=== PATIENT | male | born 1945 | race Caucasian/White ===

== ENCOUNTER 2016-08-07 14:42 | Emergency (ER) | payer OTHER ==
[2016-08-07 14:59] VITALS: BMI 22.6
--- NOTE | 2016-08-07 15:22 | ED PDOC ---
Arrival/HPI - General Historian: Patient - History of Present Illness Time/Duration: < week Quality: Aching Severity Level: 3 <Juan Jose Plummer - Last Filed: 08/07/16 15:18> <Florentino Tenorio DO - Last Filed: 08/07/16 15:43> - General Chief Complaint: Back Pain Time Seen by Provider: 08/07/16 15:03 - History of Present Illness Narrative History of Present Illness (Text): 08/07/16 15:18 This is a 71 year old [place] male presenting to the ED with back pain. The patient states that he was carrying grocery bags five days ago as the onset of his pain. The patient reprots the pain an left paraspinal. Patient denies numbness, tingling, muscle weakness, bowel/bladder incontinence, pain with urination, hematuria, and gait dysfunction. (Juan Jose Plummer) Past Medical History - Provider Review Nursing Documentation Reviewed: Yes - Travel History Have you recently traveled outside [place] w/in the past 3 mons?: No - Past History Past History: Non-Contributing - Infectious Disease Hx of Infectious Diseases: None - Tetanus Immunization Tetanus Immunization: Unknown - Past Medical History Past Medical History: Non-Contributing - Psychiatric Hx Substance Use: No - Anesthesia Hx Anesthesia: No Hx Anesthesia Reactions: No Hx Malignant Hyperthermia: No <Juan Jose Plummer - Last Filed: 08/07/16 15:18> Family/Social History - Physician Review Nursing Documentation Reviewed: Yes Family/Social History: No Known Family HX Smoking Status: Never Smoked Hx Alcohol Use: No Hx Substance Use: No <Juan Jose Plummer - Last Filed: 08/07/16 15:18> Allergies/Home Meds <Juan Jose Plummer - Last Filed: 08/07/16 15:18> <Florentino Tenorio DO - Last Filed: 08/07/16 15:43> Allergies/Adverse Reactions: Allergies NKDA Allergy (Uncoded 08/07/16 14:52) none Home Medications: Home Meds Medication Instructions Recorded Confirmed Nitroglycerin [Nitrostat] 0.4 mg SL PRN PRN 08/07/16 08/07/16 Review of Systems - Physician Review All systems were reviewed & negative as marked: Yes - Review of Systems Genitourinary Male: absent: Dysuria, Frequency, Hematuria, Urinary Output Changes Musculoskeletal: Back Pain. absent: Joint Swelling, Myalgias Neurological: absent: Headache, Focal Weakness, Gait Changes, Disequilibrium <Juan Jose Plummer - Last Filed: 08/07/16 15:18> Physical Exam Temperature: Afebrile Blood Pressure: Normal Pulse: Regular Respiratory Rate: Normal Appearance: Positive for: Well-Appearing, Non-Toxic, Comfortable Pain Distress: None Mental Status: Positive for: Alert and Oriented X 3 - Systems Exam Head: Present: Atraumatic, Normocephalic Pupils: Present: PERRL. No: Pinpoint Extroacular Muscles: Present: EOMI. No: Gaze Palsy Conjunctiva: Present: Normal. No: Icteric Mouth: Present: Moist Mucous Membranes. No: Dry Respiratory/Chest: No: Respiratory Distress, Accessory Muscle Use Cardiovascular: Present: Regular Rate and Rhythm, Normal S1, S2 Abdomen: No: Distention, Guarding Back: Present: Normal Inspection, Paraspinal Tenderness, Other (Negative Spurling Maneuver, full ROM T/L Spine). No: CVA Tenderness, Midline Tenderness , Pain with Leg Raise Upper Extremity: Present: Normal Inspection, Normal ROM, Neurovascularly Intact. No: Cyanosis, Edema Lower Extremity: Present: Normal Inspection, NORMAL PULSES, Normal ROM, Neurovascularly Intact, Capillary Refill < 2 s. No: Edema, CALF TENDERNESS, Derick's Sign, Tenderness, Deformity Neurological: Present: GCS=15, Motor Func Grossly Intact, Normal Sensory Function, Norm Deep Tendon Reflexes, Gait Normal Skin: Present: Warm, Dry, Normal Color. No: Rashes Psychiatric: Present: Alert, Oriented x 3 <Juan Jose Plummer - Last Filed: 08/07/16 15:18> Vital Signs Temp Pulse Resp BP Pulse Ox 08/07/16 14:55 98.6 F 80 18 138/84 99 Medical Decision Making <Juan Jose Plummer - Last Filed: 08/07/16 15:18> <Florentino Tenorio DO - Last Filed: 08/07/16 15:43> ED Course and Treatment: 08/07/16 15:26 Impression: This is a 71 year old male presenting with Back Pain. The patient is in no clinical distress. Able to ambulate, forward flex, extend, and sidebend without issue. The patient reports that he is here for a medication to take his pain away. Patient is amenable to take motrin. Differential: Lumbosacral Strain Paraspinal Muscle Strain Plan: Motrin 600mg PO Prior Visits: None Progress Note: Patient seen and examined. Patient without neuro deficit. Patient able to ambulate and move without issue. Full ROM throughout the thoracic and lumbar spine. No radicular symptoms. DTRs symmetric B/L. No midline spine tenderness. patient given 1 tab motrin 600mg PO in the ED and DC home. (Juan Jose Plummer) 08/07/16 15:42 71 year old male complaining of back pain. In agreement with resident note, which includes further HPI details. Patient was seen and evaluated with resident , came up with plan and treatment together. On physical exam patient with paraspinal tenderness. (Florentino Tenorio DO) - Medication Orders Current Medication Orders: Discontinued Medications Ibuprofen (Motrin Tab) 600 mg PO STAT STA Stop: 08/07/16 15:17 Last Admin: 08/07/16 15:28 Dose: 600 MG MAR Pain/Vitals Document 08/07/16 15:28 [email or web address] (Rec: 08/07/16 15:31 [email or web address] [facility] [id number] Pain Reassessment Is This A Pain ReAssessment? No Sleep Is patient sleeping during reassessment? 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 KASSANDRA has examined the patient and agrees with the treatment plan. - Scribe Statement The provider has reviewed the documentation as recorded by the Scribe <Florentino Tenorio DO - Last Filed: 08/07/16 15:43> - Scribe Statement Jaison Mejia All medical record entries made by the Scribe were at my direction and personally dictated by me. I have reviewed the chart and agree that the record accurately reflects my personal performance of the history, physical exam, medical decision making, and the department course for this patient. I have also personally directed, reviewed, and agree with the discharge instructions and disposition. (Florentino Tenorio DO) Disposition/Present on Arrival - Present on Arrival Any Indicators Present on Arrival: No History of DVT/PE: No History of Uncontrolled Diabetes: No Urinary Catheter: No History of Decub. Ulcer: No History Surgical Site Infection Following: None - Disposition Have Diagnosis and Disposition been Completed?: Yes Disposition Time: 15:30 Patient Plan: Discharge <Juan Jose Plummer - Last Filed: 08/07/16 15:18> <Florentino Tenorio DO - Last Filed: 08/07/16 15:43> - Disposition Diagnosis: Back pain Discharge Instructions (ExitCare): Back Pain (ED), Back Exercises (ED) Print Language: GABONESE Additional Instructions: 1.) Take motrin 600mg po every 8 hours as needed for pain 2.) Use proper lifting technique when lifting heavy objects 3.) Stretching exercises for back 4.) Follow up with PMD following discharge 5.) If symptoms return, please return to the ED for evaluation. Prescriptions: Ibuprofen [Motrin] 600 mg PO Q8 PRN #30 tab PRN Reason: Pain
[2016-08-07 15:47] VITALS: BP 149/79; PULSE 62; RESP 16; TEMP 97.5; O2SAT 100
== END 2016-08-07 16:00 | disposition home or self-care (01) ==
LOC: ED 14:42
DX: M54.9 Dorsalgia, unspecified (principal)

== ENCOUNTER 2016-08-09 10:42 | Emergency (ER) | payer OTHER ==
[2016-08-09 10:43] VITALS: BMI 22.6
[2016-08-09 12:06] VITALS: RESP 18; TEMP 98.2
--- NOTE | 2016-08-09 12:27 | ED PDOC ---
Arrival/HPI - General Chief Complaint: Back Pain Time Seen by Provider: 08/09/16 11:44 Historian: Patient - History of Present Illness Narrative History of Present Illness (Text): 08/09/16 11:54 A 71 year old male who presents to the emergency department complaining of left sided lower back pain for the past 3 days. Patient states he was here 3 days ago , received medications and was discharged home. Patient notes he bent down to tie his shoes and pain developed again. He denies any bowel/urinary changes, saddle anesthesia, or any other complaints at this time. PMD: None Time/Duration: Other Symptom Onset: Other Symptom Course: Unchanged Quality: Other Activities at Onset: Rest Context: Home Past Medical History - Provider Review Nursing Documentation Reviewed: Yes - Past History Past History: Non-Contributing - Infectious Disease Hx of Infectious Diseases: None - Tetanus Immunization Tetanus Immunization: Unknown - Past Medical History Past Medical History: Non-Contributing - Psychiatric Hx Substance Use: No - Anesthesia Hx Anesthesia: No Hx Anesthesia Reactions: No Hx Malignant Hyperthermia: No Family/Social History - Physician Review Nursing Documentation Reviewed: Yes Family/Social History: No Known Family HX Smoking Status: Never Smoked Hx Alcohol Use: No Hx Substance Use: No Allergies/Home Meds Allergies/Adverse Reactions: Allergies NKDA Allergy (Uncoded 08/07/16 14:52) none Home Medications: Home Meds Medication Instructions Recorded Confirmed Nitroglycerin [Nitrostat] 0.4 mg SL PRN PRN 08/07/16 08/09/16 Review of Systems - Physician Review All systems were reviewed & negative as marked: Yes - Review of Systems Gastrointestinal: absent: Stool Changes Genitourinary Male: absent: Dysuria, Frequency, Hematuria, Urinary Output Changes Musculoskeletal: Back Pain. absent: Neck Pain Neurological: Other (saddle anesthesia) Physical Exam Vital Signs Reviewed: Yes Vital Signs Temp Pulse Resp BP Pulse Ox 08/09/16 14:00 57 L 18 164/79 H 100 08/09/16 11:42 98.2 F 77 18 172/90 H 98 Temperature: Afebrile Blood Pressure: Hypertensive Pulse: Regular Respiratory Rate: Normal Appearance: Positive for: Well-Appearing, Non-Toxic, Comfortable Pain Distress: None Mental Status: Positive for: Alert and Oriented X 3 - Systems Exam Head: Present: Atraumatic, Normocephalic Pupils: Present: PERRL Extroacular Muscles: Present: EOMI Conjunctiva: Present: Normal Mouth: Present: Moist Mucous Membranes Neck: Present: Normal Range of Motion Respiratory/Chest: Present: Clear to Auscultation, Good Air Exchange. No: Respiratory Distress, Accessory Muscle Use Cardiovascular: Present: Regular Rate and Rhythm, Normal S1, S2. No: Murmurs Abdomen: Present: Normal Bowel Sounds. No: Tenderness, Distention, Peritoneal Signs Back: Present: Paraspinal Tenderness (left paralumbar tenderness with palpation) Upper Extremity: Present: Normal Inspection. No: Cyanosis, Edema Lower Extremity: Present: Normal Inspection. No: Edema Neurological: Present: GCS=15, CN II-XII Intact, Speech Normal Skin: Present: Warm, Dry, Normal Color. No: Rashes Psychiatric: Present: Alert, Oriented x 3, Normal Insight, Normal Concentration Medical Decision Making ED Course and Treatment: 08/09/16 11:54 Impression: A 71 year old male with left lower back pain. Differential Diagnosis include but are not limited to: musculoskeletal vs. fracture Plan: -- LS Spine X-ray -- Flexeril and Motrin -- Reassess and disposition Prior Visits: Notes and results from previous visits were reviewed. The patient last presented to the emergency department on 08/07/16 for evaluation of back pain after lifting grocery bags. Progress Notes: 08/09/16 14:10 Patient feeling better at this time. Patient to be discharged with Rx and follow up instructions. - RAD Interpretation Radiology Orders: 08/09/16 11:54 LS SPINE WITH OBL > 18 YRS OLD [RAD] Stat - Medication Orders Current Medication Orders: Discontinued Medications Cyclobenzaprine HCl (Flexeril) 10 mg PO STAT STA Stop: 08/09/16 11:55 Last Admin: 08/09/16 12:10 Dose: 10 MG Ibuprofen (Motrin Tab) 600 mg PO STAT STA Stop: 08/09/16 11:55 Last Admin: 08/09/16 12:10 Dose: 600 MG MAR Pain/Vitals Document 08/09/16 12:10 [email or web address] (Rec: 08/09/16 12:10 [id number]) Pain Reassessment Is This A Pain ReAssessment? No Sleep Is patient sleeping during reassessment? No Presence of Pain Presence of Pain Yes - Scribe Statement The provider has reviewed the documentation as recorded by the Scribe Dimpal Fitzpatrick Provider Mahi Attestation: All medical record entries made by the Mahi were at my direction and personally dictated by me. I have reviewed the chart and agree that the record accurately reflects my personal performance of the history, physical exam, medical decision making, and the department course for this patient. I have also personally directed, reviewed, and agree with the discharge instructions and disposition. Disposition/Present on Arrival - Present on Arrival Any Indicators Present on Arrival: No History of DVT/PE: No History of Uncontrolled Diabetes: No Urinary Catheter: No History of Decub. Ulcer: No History Surgical Site Infection Following: None - Disposition Have Diagnosis and Disposition been Completed?: Yes Diagnosis: Lumbar strain Disposition: HOME/ ROUTINE Disposition Time: 12:00 Patient Problems: Current Active Problems Problem Status Diagnosed Lumbar strain Acute Condition: IMPROVED Discharge Instructions (ExitCare): Back Exercises (ED) Additional Instructions: Thank you for letting us take care of you today. Your provider was Dr. Tenorio. You were treated for back pain. The emergency medical care you received today was directed at your acute symptoms. If you were prescribed any medication, please fill it and take as directed. It may take several days for your symptoms to resolve. Return to the Emergency Department if your symptoms worsen, do not improve, or if you have any other problems. Please contact your doctor or call one of the physicians/clinics you have been referred to that are listed on the Patient Visit Information form that is included in your discharge packet. Bring any paperwork you were given at discharge with you along with any medications you are taking to your follow up visit. Our treatment cannot replace ongoing medical care by a primary care provider (PCP) outside of the emergency department. Thank you for allowing the [facility] [place] team to be part of your care today. Follow up with your doctor in 2-3 days. Prescriptions: Cyclobenzaprine [Cyclobenzaprine HCl] 10 mg PO Q8 PRN #20 tab PRN Reason: Muscle Spasm
[2016-08-09 14:01] VITALS: BP 164/79; PULSE 57; O2SAT 100
--- NOTE | 2016-08-09 15:49 | RAD ---
PROCEDURE: Radiographs of the Lumbar Spine. HISTORY: r/o fx COMPARISON: No prior. FINDINGS: BONES: No acute fracture. DISC SPACES: Mild narrowing of L3-4 and L4-5 disc spaces consistent with degenerative disc disease. Large anterior bridging osteophyte at L4-5. Normal alignment maintained. OTHER FINDINGS: None. IMPRESSION: Degenerative disc disease L3-4 and L4-5. No fracture.
== END 2016-08-09 14:43 | disposition home or self-care (01) ==
LOC: ED 10:42
DX: S39.012A Strain of muscle, fascia and tendon of lower back, initial encounter (principal); X50.1XXA Overexertion from prolonged static or awkward postures, initial encounter

== ENCOUNTER 2018-07-29 11:23 | Emergency (ER) | payer SELFPAY, OTHER | END 2018-07-29 14:34 | disposition home or self-care (01) | LOC: ED 11:23 ==